=== PATIENT | female | born 1975 | race Hispanic/Latino ===

== ENCOUNTER 2019-08-20 11:57 | Observation (INO) | payer SELFPAY ==
[2019-08-20 12:42] LABS: #Eosinphils 0.1 thou/uL (0.0-0.7); #Lymphocytes 1.9 thou/uL (1.20-3.40); #Monocytes 0.2 thou/uL (0.11-0.59); #Neutrophils 1.9 thou/uL (1.40-6.50); %Basophils 0.8 % (0.0-1.0); %Eosinophils 2.5 % (0.0-10.0); %Lymphocytes 45.1 % (21.0-51.0); %Monocytes 5.5 % (0.0-10.0); %Neutrophils 46.1 % (42.0-75.0); Hemoglobin 6.9 g/dL (12.0-16.0); Mean Corpuscular Hemoglobin 31.4 pg (27.0-31.0); Mean Corpuscular Volume 92.5 fL (78.0-98.0); Mean Platelet Volume 7.2 fL (7.4-10.4); Platelet Count 210 thou/uL (130-400); RBC Distribution Width 11.9 % (11.5-14.5); Red Blood Cell (RBC) Count 2.18 mill/uL (4.20-5.40); White Blood Cell (WBC) Count 4.1 thou/uL (4.8-10.8)
[2019-08-20 12:59] LABS: BHCG - Serum Negative (NEGATIVE); Pregs Control Background? CLEAR/WHITE (CLR/WHITE); Pregs Control Bar Appear? YES (CONTROL BAR)
[2019-08-20] MEDS ORDERED: Estrogens, Conjugated 25 mg Vial SLOW IVP SCH ×2 (14:45→17:00)
[2019-08-20 14:49] LABS: INR-International Normal Ratio 1.1; PTT 26.9 SEC (22.9-36.1); Prothrombin Time 13.8 SEC (12.0-14.7)
[2019-08-20 14:51] LABS: D-Dimer Test 0.39 *mcg/mL (0.27-0.43)
[2019-08-20 15:04] LABS: ALT (SGPT) 15 U/L (8-55); AST (SGOT) 16 U/L (5-34); Albumin 3.3 g/dL (3.5-5.0); Alkaline Phosphatase 51 U/L (40-110); Anion Gap 10 mmol/L (10-20); BUN (Urea Nitrogen) 13 mg/dL (7.0-18.7); Bilirubin, Total 0.4 mg/dL (0.2-1.2); Calc. Creatinine Clearance 0 mL/min (70-130); Calcium 8.1 mg/dL (7.8-10.44); Carbon Dioxide 22 mmol/L (22-29); Chloride 109 mmol/L (98-107); Estimated GFR-MDRD Greater than 90; Globulin 1.9 g/dL (2.4-3.5); Glucose 89 mg/dL (70-105); Potassium 3.6 mmol/L (3.5-5.1); Protein, Total 5.2 g/dL (6.0-8.3); Sodium 137 mmol/L (136-145)
--- NOTE | 2019-08-20 15:25 | PDOC.EVN ---
Event Note - Event Note Event Note: Patient seen and examined. present for sono and EMB performed by me in bed 13 See full dictation DX: HMB Anemia For 1 unit PRBCs IV E2
[2019-08-20] MEDS ORDERED: Sterile Water 10 ML ONE (15:28)
--- NOTE | 2019-08-20 15:49 | HP ---
TIME OF EVALUATION: Between 1500 and 1525. LOCATION: ER. BED: 13. REASON FOR EVALUATION: Heavy menstrual bleeding and resulting anemia ( symptomatic). CHIEF COMPLAINT: Heavy menstrual bleeding and lightheadedness. HISTORY OF PRESENT ILLNESS: This is a 44-year-old G4, P4 (all vaginal deliveries) with an LMP of 2 weeks ago, who states that she missed her cycle for the last 2 months and this cycle has been occurring for 2 weeks. Prior to arrival to the ED, she states that she was feeling lightheaded, but did not have loss of consciousness. She denies chest pain, shortness of breath, or other issues. She states that she is normally regular in her cycles, does not take control, and has no bleeding with intercourse. She has been passing heavy clots including the time that she has been in the ER. I was called because of her lightheadedness/ pale state and her hematocrit on initial CBC. REVIEW OF SYSTEMS: Complete review of systems was checked and is otherwise negative unless specified in the HPI. PAST MEDICAL HISTORY: Negative. PAST SURGICAL HISTORY: None. PAST OB HISTORY: Significant for 4 vaginal deliveries. MEDICATIONS: None. ALLERGIES: NO KNOWN DRUG ALLERGIES. PAST SURGICAL HISTORY: Negative. SOCIAL HISTORY: Negative for alcohol, tobacco, or drug use. PAST PSYCHIATRIC HISTORY: Negative. PHYSICAL EXAMINATION: GENERAL: She is slightly pale, but appears stable. VITAL SIGNS: Her vital signs show a blood pressure of 110/70 with a heart rate of 79. Clinically, she is in no acute distress. ABDOMEN: Soft and nontender. PELVIC: I evaluated the patient when she was in the ultrasound room in the ER and found her to have slight to moderate vaginal bleeding. I performed a bimanual exam and found a nodular cervix on palpation. On vaginal examination, for which I was present, I did confirm that the nodular sensation was due to nabothian cyst. ULTRASOUND: The ultrasound showed no gross evidence of fibroids or ovarian masses. The endometrial stripe appeared a little thickened, but she is premenopausal. LABORATORY DATA: Her hematocrit value was as previously stated at 20.2. There is no evidence of thrombocytopenia with platelets of 210. Coagulation tests were also drawn to rule out coagulopathy, and a PT and a PTT were normal. D-dimers were 0.39, which is noncontributory to this workup. A complete metabolic panel was checked, which showed that her creatinine was 0.57, and her glucose was normal at 89. LFTs were normal. INTERVENTIONS ORDERED: I have ordered 1 unit of packed red blood cells due to her symptomatic anemia. I have also ordered IV fluid hydration. I have also ordered IV estrogen per protocol (25 mg slow IV q.4 hours x6). ASSESSMENT: This is a 44-year-old multigravida with heavy menstrual bleeding- not otherwise specified. PLAN: 1. IV estrogen. 2. IV fluid hydration. 3. Regular diet. 4. Ultrasound performed and completed, results as above. 5. Endometrial biopsy performed by me with three passes, which revealed abundant tissue. I have placed the order for EMB in the lab and the specimen has been dropped off by me. Job ID: [id number] [facility]
--- NOTE | 2019-08-20 16:11 | ULT ---
PELVIC ULTRASOUND: History: Pelvic pain. No period for two months, now been having bleeding for two weeks. FINDINGS: Real-time imaging of the pelvis was obtained both transabdominally as well as with an endovaginal pro be. This shows the uterus measuring 5.6 x 6.7 x 11.2 cm. The endometrium is thickened and heterogeneo us in appearance and measures at least 1.2 cm. Small nabothian cysts are noted. The right ovary is normal in appearance. There is a small, approximately 1.3 x 1.6 cm cyst involving the left adnexa. DOPPLER EVALUATION WITH SPECTRAL ANALYSIS: Normal flow is shown to both adnexal regions. IMPRESSION: 1. Mildly thickened endometrium. 2. Small cyst involving the left ovary. POS: [facility]
--- NOTE | 2019-08-20 19:59 | PDOC.EVN ---
Event Note - Event Note Event Note: Patient seen at bedside now S/P 1 unit PRBC felling better States VB now decreased VSS afebrile We will OBS overnight and continue Q4HR E2 IVP Anticipate DSCH tomorrow
[2019-08-20] MEDS: Estrogens, Conjugated 25 mg Vial SLOW IVP SCH ×3 (20:03→23:00)
[2019-08-20] MEDS: Sodium Chloride 0.9% 1,000 ML IV SCH ×2 (20:15→23:41)
[2019-08-20] MEDS: Sterile Water 10 ML VIAL FS PRN ×2 (20:17→23:00)
[2019-08-20] MEDS: Ondansetron ODT 4 MG TAB PO PRN (22:58)
[2019-08-20] MEDS ORDERED: Ibuprofen 600 MG TAB PO PRN (23:23)
[2019-08-20] MEDS ORDERED: ALPRAZolam 0.5 MG TAB PO SCH (23:30)
[2019-08-20] MEDS ORDERED: ALPRAZolam 1 MG TAB PO SCH (23:30)
[2019-08-21] MEDS: Sterile Water 10 ML VIAL FS PRN ×3 (03:06→13:14)
[2019-08-21] MEDS: Estrogens, Conjugated 25 mg Vial SLOW IVP SCH ×3 (03:06→13:14)
--- NOTE | 2019-08-21 05:38 | PDOC.EVN ---
Event Note - Event Note Event Note: HD2 S/P 1 unit PRBC S. Feels better. E2 may be making her nauseated O. HCT this am stable from first check=20.6 No further active VB Abd soft, NT A/P: HMB with HCT stable at 20. E2 in use. Due to no real improvement in HCT, I will give the 2nd unit of PRBCs.
[2019-08-21] MEDS: Ondansetron ODT 4 MG TAB PO PRN (06:32)
[2019-08-21] MEDS ORDERED: diphenhydrAMINE 25 MG CAP PO PRN (07:13)
[2019-08-21] MEDS ORDERED: Estrogens, Conjugated 25 mg Vial SLOW IVP SCH (12:15)
[2019-08-21 16:38] VITALS: BP 111/59; TEMP 98.9
--- NOTE | 2019-08-21 17:05 | DIS ---
DATE OF ADMISSION: 08/20/2019 DATE OF DISCHARGE: 08/21/2019 PRIMARY ADMISSION: Severe iron deficiency anemia secondary to menorrhagia. IN-HOSPITAL PROCEDURE: PRBCs x2 and ultrasound and endometrial biopsy. SUMMARY OF HOSPITAL COURSE: The patient presented with a hematocrit of 20%. She was symptomatic on presentation with normal coagulation indices. Other lab work was unremarkable. She had a pelvic ultrasound performed on 08/20 in the emergency room which revealed a normal-sized uterus with a 1.2 cm endometrial thickness. There was no significant free fluid. She received 1 unit of PRBCs and had hematocrit that was stable at 20%. She received a second unit. With the second unit, the patient's pulse was noted to be 75 after up to 91 on admission. The patient stated she felt much better. She received IV Premarin x4 doses, which decreased her vaginal bleeding to almost none. She will be discharged home on Provera 10 mg b.i.d. for 2 weeks. Endometrial biopsy was performed by Dr. Aparicio in the emergency room. The patient will follow up at [facility] for pathology results later this week. Importance of completing her Provera therapy was emphasized to the patient. The patient received ER precautions for return of bleeding. Job ID: [id number]
--- NOTE | 2019-08-23 17:09 | PDOC.EVN ---
Event Note - Event Note Event Note: Post discharge chart check: EMB disorganized proliferative tissue
== END 2019-08-21 17:40 | disposition home or self-care (01) ==
LOC: ERS 11:57 → 3SE 15:10
PROVIDERS: ADMIT Obstetrics & Gynecology; ATTEND Obstetrics & Gynecology
PROC: 0UDB7ZX Extraction of Endometrium, Via Natural or Artificial Opening, Diagnostic (ICD-10-PCS; principal; 2019-08-20)
DX: N92.0 Excessive and frequent menstruation with regular cycle (principal); D50.0 Iron deficiency anemia secondary to blood loss (chronic); N83.202 Unspecified ovarian cyst, left side
CPT/HCPCS: 36415; 36430; 76856; 80053; 84703; 85014; 85018; 85025; 85379; 85610; 85730; 86850; 86900; 86901; 88305; 93976; 96361; 96372; 96374; G0378; J1410; P9016; Q0162; Q0163

== ENCOUNTER 2019-09-13 11:54 | Emergency (ER) | payer SELFPAY ==
[2019-09-13 12:48] LABS: #Eosinphils 0.1 thou/uL (0.0-0.7); #Lymphocytes 1.5 thou/uL (1.20-3.40); #Monocytes 0.3 thou/uL (0.11-0.59); #Neutrophils 2.9 thou/uL (1.40-6.50); %Basophils 0.9 % (0.0-1.0); %Eosinophils 1.3 % (0.0-10.0); %Lymphocytes 30.8 % (21.0-51.0); %Monocytes 6.8 % (0.0-10.0); %Neutrophils 60.1 % (42.0-75.0); Hemoglobin 9.1 g/dL (12.0-16.0); Mean Corpuscular HGB CONC 33.6 g/dL (32.0-36.0); Mean Corpuscular Hemoglobin 29.1 pg (27.0-31.0); Mean Corpuscular Volume 86.8 fL (78.0-98.0); Mean Platelet Volume 7.6 fL (7.4-10.4); Platelet Count 242 thou/uL (130-400); RBC Distribution Width 15.3 % (11.5-14.5); Red Blood Cell (RBC) Count 3.14 mill/uL (4.20-5.40); White Blood Cell (WBC) Count 4.9 thou/uL (4.8-10.8)
[2019-09-13 12:56] LABS: BHCG - Serum Negative (NEGATIVE); Pregs Control Background? CLEAR/WHITE (CLR/WHITE); Pregs Control Bar Appear? YES (CONTROL BAR)
[2019-09-13 13:12] LABS: Anion Gap 10 mmol/L (10-20); BUN (Urea Nitrogen) 10 mg/dL (7.0-18.7); Calc. Creatinine Clearance 0 mL/min (70-130); Calcium 8.9 mg/dL (7.8-10.44); Carbon Dioxide 24 mmol/L (22-29); Chloride 108 mmol/L (98-107); Estimated GFR-MDRD Greater than 90; Glucose 88 mg/dL (70-105); Potassium 3.5 mmol/L (3.5-5.1); Sodium 138 mmol/L (136-145)
[2019-09-13] MEDS ORDERED: Ketorolac Tromethamine 30 MG/ML VIAL ONE (13:59)
[2019-09-13] MEDS ORDERED: Estrogens, Conjugated 25 mg Vial IM SCH (14:30)
== END 2019-09-13 15:30 | disposition home or self-care (01) ==
LOC: ERS 11:54
DX: N93.8 Other specified abnormal uterine and vaginal bleeding (principal); Z79.899 Other long term (current) drug therapy
CPT/HCPCS: 80048; 84703; 85025; 86850; 86900; 86901; 96361; 96372; 96374; J1410; J1885

== ENCOUNTER 2022-11-28 19:59 | Emergency (ER) | payer SELFPAY ==
[2022-11-28] MEDS ORDERED: Orphenadrine Citrate 60 MG/2 ML VIAL ONE (20:42)
== END 2022-11-28 22:29 | disposition home or self-care (01) ==
LOC: ERS 19:59
DX: M25.561 Pain in right knee (principal)
CPT/HCPCS: 96372; J2360